=== PATIENT | female | born 1985 | race Hispanic/Latino ===

== ENCOUNTER 2018-02-08 16:39 | Outpatient (CLI) | payer OTHER ==
[2018-02-08 18:04] LABS: Hemoglobin 7.1 g/dL (12.0-16.0); Mean Corpuscular HGB CONC 27.7 g/dL (32.0-36.0); Mean Corpuscular Hemoglobin 16.9 pg (27.0-31.0); Mean Corpuscular Volume 60.9 fl (81.0-99.0); Mean Platelet Volume 5.9 fL (7.4-10.4); Platelet Count 483 thou/uL (130-400); RBC Distribution Width 20.3 % (11.5-14.5); Red Blood Cell (RBC) Count 4.22 mill/uL (4.20-5.40); White Blood Cell (WBC) Count 6.5 thou/uL (4.8-10.8)
[2018-02-08 18:30] LABS: BHCG - Serum Negative (NEGATIVE); Pregs Control Background? CLEAR/WHITE (CLR/WHITE); Pregs Control Bar Appear? YES (CONTROL BAR)
== END 2018-02-08 16:40 | disposition home or self-care (01) ==
LOC: LABBT 16:39
PROVIDERS: ATTEND Obstetrics & Gynecology
DX: Z01.812 Encounter for preprocedural laboratory examination (principal); D21.9 Benign neoplasm of connective and other soft tissue, unspecified
CPT/HCPCS: 84703; 85027; 86850; 86900; 86901

== ENCOUNTER 2018-02-15 06:01 | Day surgery (SDC) | payer OTHER ==
[2018-02-08 16:53] VITALS: BMI 28.1
[2018-02-08 18:04] LABS: Hemoglobin 7.1 g/dL (12.0-16.0); Mean Corpuscular HGB CONC 27.7 g/dL (32.0-36.0); Mean Corpuscular Hemoglobin 16.9 pg (27.0-31.0); Mean Corpuscular Volume 60.9 fl (81.0-99.0); Mean Platelet Volume 5.9 fL (7.4-10.4); Platelet Count 483 thou/uL (130-400); RBC Distribution Width 20.3 % (11.5-14.5); Red Blood Cell (RBC) Count 4.22 mill/uL (4.20-5.40); White Blood Cell (WBC) Count 6.5 thou/uL (4.8-10.8)
--- NOTE | 2018-02-14 16:56 | HP ---
DATE OF ADMISSION: 02/15/2018 REASON FOR ADMISSION: Dysmenorrhea, menorrhagia and fundal fibroid. SCHEDULED PROCEDURE: Minilaparotomy with open myomectomy. HISTORY OF PRESENT ILLNESS: Ms. Chisholm is a 32-year-old 2, para 2, status post x2, w ho presented to me with complaints of severe dysmenorrhea. She is noted to have a 5 cm fundal fibroi d and the patient desires surgical management with uterine preservation. PLANNER CHIEF HISTORY: x2, largest 8 pounds and 11 ounces. Patient had an ASCUS Pap smear positi ve, high-risk HPV in 2017. Colposcopy by myself was unremarkable. Endometrial biopsy was benign. OB AND DRUM DRIER HISTORY: As noted in the HPI. PAST MEDICAL HISTORY: Denies. PAST SURGICAL HISTORY: x2. MEDICATION: Iron sulfate. ALLERGIES: None. SOCIAL HISTORY: Denies tobacco, alcohol, or IV drug use. FAMILY HISTORY: Noncontributory. REVIEW OF SYSTEMS: Noncontributory. PHYSICAL EXAMINATION: VITAL SIGNS: Female, 5 feet 7 inches, 180, BMI 28, blood pressure 116/70, pulse 95, respirations 18. HEENT: Within normal limits. LUNGS: Clear to auscultation bilaterally. HEART: Regular rate and rhythm. BREASTS: No masses bilaterally. ABDOMEN: Soft, nontender, no rebound or guarding. PELVIC: Vulva without lesions. Vagina without discharge. Cervix nulliparous. Uterus, anteverted, prominent fundal fibroid just at the level of the patient's previous incision, an approxima tely 5 cm fibroid. IMAGING DATA: Ultrasound in my office last week revealed a persistent and stable 5 cm fundal fibroid . Anterior fundal does not seem to be invading the uterine cavity. The patient incidentally had a h emorrhagic 4 cm cyst on the right ovary. IMPRESSION: Symptomatic persistent fundal fibroid. PLAN: Minilaparotomy with Bart O retractor and myomectomy. Anticipate placement of double lumen O N-Q pain pump for postoperative analgesia. We will administer appropriate antibiotic and DVT prophyl axis. Plan for outpatient versus overnight 23-hour observation stay.
[2018-02-15] MEDS ORDERED: Fentanyl 250 MCG/5 ML VIAL ONE (06:42)
[2018-02-15] MEDS ORDERED: Midazolam HCl 2 mg/2 ml Vial ONE ×2 (06:42→07:03)
[2018-02-15] MEDS ORDERED: CEFAZOLIN/Water 2 GM/20 ML SYRINGE ONE (06:45)
[2018-02-15] MEDS ORDERED: Ropivacaine HCl/PF 750 ML in Premix Bag 1 BAG NERVE BLCK SCH (07:30)
[2018-02-15] MEDS ORDERED: Acetaminophen 1,000 MG in Premix Bag 1 BAG IVPB SCH (07:30)
[2018-02-15] MEDS ORDERED: Bupivacaine 0.25% HCL 30 ML VIAL ONE (08:42)
[2018-02-15] MEDS ORDERED: HYDROcodone/Acetaminophen 5/325 mg Tablet ONE ×2 (10:28→14:41)
[2018-02-15] MEDS ORDERED: Morphine 4 MG/ML VIAL ONE (10:39)
--- NOTE | 2018-02-15 10:41 | OP ---
DATE OF OPERATION: 02/15/2018 PREOPERATIVE DIAGNOSES: Menorrhagia, dysmenorrhea, anemia with a 5 cm partial intracavitary, intramu ral fibroid. POSTOPERATIVE DIAGNOSES: Approximately 30% intracavitary 5 cm fibroid with associated adenomyosis. PROCEDURE: Myomectomy with ON-Q pump placement. SURGEON: Alessandro Pardo M.D. TOOL DISTRIBUTOR: Darcy Woods M.D. SPECIMENS REMOVED: Fibroid and a partial uterine wall. ESTIMATED BLOOD LOSS: 100 mL. OPERATIVE FINDINGS: 1. A 5 cm fibroid with approximately 30% of the fibroid intracavitary. 2. Adjacent redundant uterine tissue consistent with adenomyosis resected. 3. Normal appearing right ovary with small functional ovarian cyst. 4. Normal appearing left tube and ovary. 5. Hemostasis, clear urine, counts correct at the end of the procedure. DISPOSITION: Recovery room and day stay in good condition. Follow up at [facility] in 1 month. DESCRIPTION OF OPERATIVE PROCEDURE: After obtaining proper informed consent, the patient was taken t o the operating room where general endotracheal anesthesia was achieved without difficulty. The keila ent was prepped and draped and a Salvador catheter placed. A previous Pfannenstiel incision identified and approximately 5-6 cm skin incision made, carried down through the subcutaneous tissue down to the fascia which was incised sharply in the midline and extended laterally with curved Tovar scissors. I t was dissected off the rectus superiorly and inferiorly, divided in the midline and the peritoneum e ntered bluntly. Adhesions were not identified. The patient was placed in Trendelenburg position. B owel packed out of the way with one moist laparotomy sponge and the uterus elevated through the hyste rotomy. The fibroid was identified and it was in the anticipated location anterior fundal, approxima tely 20 mL of a dilute Pitressin solution were injected in the uterus and the fibroid, vertical incis ion was made in the middle of the uterus approximately 4 cm in length. Dissection was carried down t o the level of the fibroid, we dissected around the fibroid. Anterior to the fibroid a large area co nsistent with adenomyosis was adjacent to it. This area was vascular and really kind of shelled out with the fibroid and was removed with it. Posteriorly, approximately 30% of the surface of this 5 cm fibroid was correctly abutting the endometrial cavity. The level of the uterus and the endometrium was approximately 2 mm thick at this level and it was dissected sharply off the fibroid, but was ente red along approximately 2 cm long area at the fundus. Fibroid was completely removed and sent for pa thologic analysis. The entry into the endometrial cavity was closed using a running continuous 0 chr omic suture. Suction irrigation was carried out. Good hemostasis was achieved. An 0 PDS suture loc k was used to reapproximate the defect from the removal of the fibroid and the adenomyosis tissue. A fter 2 levels of closure, FloSeal was applied for further hemostasis and then the incision closed the rest of the way. The surface of the incision was closed using another suture locked PDS and FloSeal placed across this, pressure applied for 3 minutes with a moist sponge. Good hemostasis was noted. Inspection of the ovary revealed the findings as noted the operative findings. The fascia was eleva angie anteriorly and inspected at the level of the peritoneum. A one 5 inch ON-Q catheter was placed u nder direct visualization intraperitoneal and then placed along the uterine incision. The peritoneum was then closed using an 0 Vicryl suture and a second ON-Q catheter was placed between the level of the fascia and the muscle over the incision. The fascia was then reapproximated using an 0 PDS sutur e, taking care to avoid entrapping the ON-Q catheter. Catheters were flushed with a Marcaine solutio n and hooked up to a 750 mL, 8 mL total per hour ON-Q double lumen. Subcutaneous tissue was irrigate d and rendered hemostatic with Bovie cautery, reapproximated using a 2-0 chromic and the skin was karlie roximated using a 4-0 Monocryl and Dermabond. Salvador catheter was removed. The patient awakened, ext ubated, and taken to recovery room in good condition. Anticipation with good analgesia will be disch arged home on [place] with followup at [facility] in 1 month.
[2018-02-15] MEDS ORDERED: Promethazine HCl 25 MG/ML VIAL ONE (13:48)
== END 2018-02-15 15:05 | disposition home or self-care (01) ==
LOC: SDC 06:01
PROVIDERS: ATTEND Obstetrics & Gynecology
PROC: 0UB90ZZ Excision of Uterus, Open Approach (ICD-10-PCS; principal; 2018-02-15)
DX: D25.1 Intramural leiomyoma of uterus (principal)
CPT/HCPCS: 36430; 85027; 86850; 86900; 86901; 88305; J0131; J2250; J2270; J2550; J2795; J3010; P9016; S0020

== ENCOUNTER 2019-01-24 08:41 | Outpatient (CLI) | payer OTHER ==
--- NOTE | 2019-01-24 10:41 | ULT ---
OB ULTRASOUND: Date: 01/24/19 HISTORY: anatomy. FINDINGS: Single, live intrauterine gestation is seen, with measurements corresponding to an estimated gestatio nal age of 19 weeks/5 days and MADHU at 06/15/2019. Estimated weight measures 292 gm, or 10 oz. T his corresponds to the 30th percentile by Hadlock criteria. measurements are as follows: BPD: 4.57 cm, 19 weeks/6 days HC: 17.43 cm, 20 weeks/0 days AC: 14.29 cm, 19 weeks/5 days FL: 2.93 cm, 19 weeks/1 day heart rate measures 128 beats/minute. Placenta is anteriorly located without evidence of placen ta previa. SOFI measures 11.2 cm. Cervical length measures 3.4 cm. Three vessel cord, cord insertion, kidneys, bladder, stomach, four chamber heart, lateral ventr icles, cerebellum, spine, lips/nose, upper/lower extremities are visualized. No definite anomal ies are seen. IMPRESSION: Single, live intrauterine of 19 weeks/5 days estimated gestational age and MADHU at 9. POS: [facility]
== END 2019-01-24 08:42 | disposition home or self-care (01) ==
LOC: BICULT 08:41
PROVIDERS: ATTEND Family Medicine
DX: Z34.02 Encounter for supervision of normal first pregnancy, second trimester (principal); Z3A.19 19 weeks gestation of pregnancy
CPT/HCPCS: 76805

== ENCOUNTER 2019-05-11 16:36 | Day surgery (SDC) | payer OTHER ==
[2019-05-11] MEDS ORDERED: Iron Sucrose Complex 500 MG in Sodium Chloride 0.9% 250 ML 250 ML IVPB SCH (17:18)
[2019-05-11] MEDS ORDERED: Acetaminophen 500 MG TAB PO SCH (17:30)
[2019-05-11 17:33] VITALS: BP 118/71; TEMP 98.3; BMI 30.8
== END 2019-05-12 00:10 | disposition home or self-care (01) ==
LOC: L&D/OP 16:36
PROVIDERS: ATTEND Family Medicine
DX: O99.019 Anemia complicating pregnancy, unspecified trimester (principal); D64.9 Anemia, unspecified; Z3A.00 Weeks of gestation of pregnancy not specified
CPT/HCPCS: 96365; 96366; 99282; J1756; J7050

== ENCOUNTER 2019-06-04 05:51 | Inpatient (IN) | payer OTHER ==
[2019-06-04] MEDS ORDERED: Ondansetron PF 4 MG/2 ML Vial IVP PRN ×3 (06:12→10:00)
[2019-06-04] MEDS ORDERED: Lactated Ringer's 1,000 ML IV SCH (06:12)
[2019-06-04] MEDS ORDERED: Promethazine HCl 25 MG/ML VIAL IM PRN ×2 (06:12→07:25)
[2019-06-04] MEDS ORDERED: CEFAZOLIN 2 GM in Premix Bag 1 BAG IVPB SCH (06:12)
[2019-06-04] MEDS ORDERED: hydrALAZINE 20 MG/ML VIAL SLOW IVP PRN ×2 (06:12→10:00)
[2019-06-04] MEDS ORDERED: Bicitra 30 ML UDCUP PO SCH (06:12)
[2019-06-04] MEDS ORDERED: Azithromycin 500 MG in Sodium Chloride 0.9% 250 ML 250 ML IVPB SCH (06:12)
[2019-06-04 06:40] LABS: Hemoglobin 10.8 g/dL (12.0-16.0); Mean Corpuscular HGB CONC 31.9 g/dL (32.0-36.0); Mean Corpuscular Hemoglobin 23.3 pg (27.0-31.0); Mean Platelet Volume 6.9 fL (7.4-10.4); Platelet Count 236 thou/uL (130-400); RBC Distribution Width 23.2 % (11.5-14.5); Red Blood Cell (RBC) Count 4.64 mill/uL (4.20-5.40); White Blood Cell (WBC) Count 6.1 thou/uL (4.8-10.8)
[2019-06-04] MEDS ORDERED: MORPHINE 5 MG/10 ML PF VIAL ONE (07:01)
[2019-06-04] MEDS ORDERED: ePHEDrine/0.9% NaCl/PF SYRINGE 50 mg/10 ml ONE (07:02)
[2019-06-04] MEDS ORDERED: PHENYLEPHRINE-NS 100 MCG/ML 10 ML SYRINGE ONE ×2 (07:03→13:19)
[2019-06-04] MEDS ORDERED: Oxytocin 10 UNITS/ML VIAL ONE ×3 (07:03→08:16)
[2019-06-04] MEDS ORDERED: Ketorolac Tromethamine 30 MG/ML VIAL ONE ×2 (07:04→13:19)
[2019-06-04 07:11] LABS: Syphilis Antibody Nonreactive (Nonreactive); Syphilis Antibody Index 0.06 S/CO (<1.00 Non-Reactive)
[2019-06-04 07:12] LABS: HBSAg Index 0.19 S/CO (0-0.99); Hep B Surf Ag Non-Reactive S/CO (NonReactive)
[2019-06-04] MEDS ORDERED: Naloxone HCl 0.4 mg/ml Vial IV PRN (07:25)
[2019-06-04] MEDS ORDERED: HYDROmorphone 2 MG/ML VIAL SLOW IVP PRN (07:25)
[2019-06-04] MEDS ORDERED: Naloxone HCl 0.4 mg/ml Vial IVP PRN ×2 (07:25)
[2019-06-04] MEDS ORDERED: L&D-Morphine 4 MG/ML VIAL SLOW IVP PRN (07:25)
[2019-06-04] MEDS ORDERED: Promethazine HCl 25 MG SUPP PR PRN (07:25)
[2019-06-04] MEDS ORDERED: Ketorolac Tromethamine 30 MG/ML VIAL IVP PRN (07:25)
[2019-06-04] MEDS ORDERED: Meperidine HCl/PF 25 MG/ML VIAL SLOW IVP PRN (07:25)
[2019-06-04] MEDS ORDERED: Ondansetron HCl/PF 4 MG/2 ML Vial IVP PRN (07:25)
[2019-06-04] MEDS ORDERED: diphenhydrAMINE 50 MG/ML VIAL IVP PRN (07:25)
[2019-06-04] MEDS ORDERED: Ketorolac Tromethamine 30 MG/ML VIAL IVP SCH (07:30)
[2019-06-04] MEDS ORDERED: Communication Order-Pharmacy FS SCH (07:30)
[2019-06-04] MEDS ORDERED: Methylergonovine 0.2 MG/ML VIAL ONE ×3 (07:54→09:58)
[2019-06-04] MEDS ORDERED: NS / Oxytocin 40 units/1000ml 1,000 ML ONE (09:52)
[2019-06-04] MEDS ORDERED: Bisacodyl 10 MG SUPP PR PRN (10:00)
[2019-06-04] MEDS ORDERED: Acetaminophen/Codeine 30-300mg Tablet PO PRN (10:00)
[2019-06-04] MEDS ORDERED: Lanolin Ointment 7 GM TUBE TOP PRN (10:00)
[2019-06-04] MEDS ORDERED: Acetaminophen 325 MG TAB PO PRN (10:00)
[2019-06-04] MEDS ORDERED: Methylergonovine 0.2 MG/ML VIAL IM SCH (10:15)
[2019-06-04] MEDS ORDERED: Morphine 2 MG/ML SYRINGE SLOW IVP PRN (11:35)
[2019-06-04] MEDS ORDERED: Morphine 2 MG/ML SYRINGE SLOW IVP SCH (11:45)
[2019-06-04] MEDS: Lactated Ringer's 1,000 ML IV SCH ×2 (11:46→14:33)
[2019-06-04] MEDS: Prenatal Vitamin 1 TAB PO SCH (11:46)
[2019-06-04] MEDS ORDERED: ePHEDrine 50 MG/ML VIAL ONE (13:19)
[2019-06-04] MEDS: Ibuprofen 800 MG TAB PO SCH ×2 (14:30→20:58)
--- NOTE | 2019-06-04 15:07 | OP ---
DATE OF PROCEDURE: 06/04/2019 PREOPERATIVE DIAGNOSIS: Term intrauterine with previous section x2. POSTOPERATIVE DIAGNOSIS: Term intrauterine with previous section x2 status post delivery. PROCEDURE: Repeat low-transverse section. GARMENT LINER: Dr. Ryan Gutierrez. MEDICAL STUDENTS: Yue Dewitt and Hiram Robertson, MS-3. ANESTHESIA: Spinal anesthetic. COMPLICATIONS: No complications. After adequate spinal anesthetic, the patient was placed in supine position. Salvador catheter was placed and was prepped and draped in usual sterile technique. A Pfannenstiel incision was made through the old scar. Subcutaneous tissue was opened with sharp dissection. The fascia was opened with sharp dissection and the peritoneum was opened with blunt dissection. Noted the abdomen was still with a gravid uterus. There were minimal adhesions. A large Bart O retractor was placed without difficulty and a low-transverse incision was made on the uterus. Membranes were ruptured. Clear fluid was encountered and a viable female infant was delivered from vertex presentation without difficulty. Infant breathed and cried spontaneously. Cord was clamped and cut after approximately 30 seconds. was dried and handed to the care of the neonatology team. Cord blood was obtained and placenta was delivered manually and appeared intact. A wet lap was used to wipe clean the uterus and ring forceps were placed over the hysterotomy edges. Hysterotomy was then closed in continuous fashion using 0 Monocryl suture. Hemostasis was adequate. There was no bleeding in the gutters. The Bart O retractor was removed and the peritoneum was closed in continuous fashion using 2-0 chromic suture. The fascia was then closed in continuous fashion using 0 Vicryl. Sponge and instrument counts were correct. The wound was irrigated and a subcuticular 2-0 plain suture was used in running fashion. The skin was then closed using heather. Sponge and instrument counts were again correct. The patient tolerated the procedure well, did go to recovery room in good condition. QBL was 1135. Baby is a viable female , weight 7 pounds and 10 ounces. Apgars 9 at 1 minute, 9 at 5 minutes. Job ID: [id number]
[2019-06-04] MEDS: Docusate Calcium (SURFAK) 240 MG CAP PO SCH (20:11)
[2019-06-04] MEDS: Ferrous Sulfate 325 MG TAB PO SCH (20:11)
[2019-06-04] MEDS ORDERED: Sodium Chloride 0.9% 10 ML ONE (20:56)
[2019-06-05] MEDS: Lactated Ringer's 1,000 ML IV SCH ×3 (02:18→13:39)
[2019-06-05] MEDS: HYDROcodone/Acetaminophen 5/325 mg Tablet PO PRN ×3 (04:14→21:46)
[2019-06-05] MEDS: Simethicone Chewable 80 MG TAB PO PRN (04:14)
[2019-06-05] MEDS ORDERED: Sodium Chloride 0.9% 10 ML ONE (04:27)
[2019-06-05 06:13] LABS: Hemoglobin 8.3 g/dL (12.0-16.0); Mean Corpuscular HGB CONC 30.8 g/dL (32.0-36.0); Mean Corpuscular Hemoglobin 23.1 pg (27.0-31.0); Mean Corpuscular Volume 75.2 fL (78.0-98.0); Mean Platelet Volume 11.4 fL (7.4-10.4); Platelet Count 183 thou/uL (130-400); RBC Distribution Width 22.7 % (11.5-14.5); Red Blood Cell (RBC) Count 3.59 mill/uL (4.20-5.40); White Blood Cell (WBC) Count 5.8 thou/uL (4.8-10.8)
[2019-06-05] MEDS: Ibuprofen 800 MG TAB PO SCH ×3 (06:44→21:48)
[2019-06-05] MEDS ORDERED: Benzonatate 100 MG CAP PO PRN (09:37)
[2019-06-05] MEDS: Docusate Calcium (SURFAK) 240 MG CAP PO SCH ×2 (09:53→21:46)
[2019-06-05] MEDS: Prenatal Vitamin 1 TAB PO SCH (09:53)
[2019-06-05] MEDS: Ferrous Sulfate 325 MG TAB PO SCH ×2 (09:53→21:48)
[2019-06-06] MEDS: Lactated Ringer's 1,000 ML IV SCH ×3 (05:06→22:41)
[2019-06-06] MEDS: Ibuprofen 800 MG TAB PO SCH ×3 (06:21→21:41)
[2019-06-06] MEDS: Ferrous Sulfate 325 MG TAB PO SCH ×2 (08:06→20:40)
[2019-06-06] MEDS: Prenatal Vitamin 1 TAB PO SCH (08:07)
[2019-06-06] MEDS: Docusate Calcium (SURFAK) 240 MG CAP PO SCH ×2 (08:07→20:40)
[2019-06-06] MEDS: HYDROcodone/Acetaminophen 5/325 mg Tablet PO PRN ×2 (12:13→20:40)
[2019-06-06] MEDS: Simethicone Chewable 80 MG TAB PO PRN (20:41)
[2019-06-07] MEDS: Ibuprofen 800 MG TAB PO SCH (05:54)
[2019-06-07 07:59] VITALS: BP 118/81; TEMP 97.9
[2019-06-07] MEDS: HYDROcodone/Acetaminophen 5/325 mg Tablet PO PRN (08:15)
[2019-06-07] MEDS: Docusate Calcium (SURFAK) 240 MG CAP PO SCH (08:16)
[2019-06-07] MEDS: Ferrous Sulfate 325 MG TAB PO SCH (08:16)
[2019-06-07] MEDS: Prenatal Vitamin 1 TAB PO SCH (08:16)
[2019-06-07] MEDS: Lactated Ringer's 1,000 ML IV SCH (12:09)
== END 2019-06-07 13:17 | disposition home or self-care (01) | DRG 787 ==
LOC: L&D 05:51 → 3SW 11:05
PROVIDERS: ADMIT Family Medicine; ATTEND Family Medicine
PROC: 10D00Z1 Extraction of Products of Conception, Low, Open Approach (ICD-10-PCS; principal; 2019-06-04)
DX: O34.211 Maternal care for low transverse scar from previous cesarean delivery (principal); O72.1 Other immediate postpartum hemorrhage; N73.6 Female pelvic peritoneal adhesions (postinfective); O99.89 Other specified diseases and conditions complicating pregnancy, childbirth and the puerperium; O24.429 Gestational diabetes mellitus in childbirth, unspecified control; Z3A.39 39 weeks gestation of pregnancy; Z37.0 Single live birth
CPT/HCPCS: 36415; 85027; 86780; 86850; 86900; 86901; 87340; J0456; J0690; J1885; J2210; J2270; J2274; J2405; J2590; J3490; J7050